=== PATIENT | female | born 1955 | race African-American/Black ===

== ENCOUNTER 2016-11-28 03:14 | Emergency (ER) | payer OTHER ==
[~2016-11-28] VITALS: Ht 157.5 cm; Wt 116.4 kg
[~2016-11-28 03:14] MED LIST: ASPIR 8181 M1 PO; ATARAX,VISTARIL25 MG PO; ATORVASTATIN CA80 MG PO; BENADRYL25 MG PO; CLOBETASOL PROP60 G1 TP; COUMADIN,JANTO2.5 MG PO; Cipro PO; DILAUDID2 MG PO; HYDROCHLOROTHIA25 MG PO; HYDROXYCHLOROQ200 MG PO; HYDROXYZINE HCL25 MG PO; Hydrodiuril,Oretic,E PO; KEFLEX500 MG PO; KLOR-CON M2020 MEQ PO; LO-DOSE ASPIRIN81 M2 PO; LOPRESSOR50 MG PO; MACROBID100 MG PO; METOPROLOL SUC100 MG PO; MYCOPHENOLATE500 MG PO; MYRBETRIQ25 MG PO; NIFEDIPINE ER30 MG PO; NIFEDIPINE ER60 MG PO; OXYBUTYNIN CHLO10 MG PO; PLAVIX75 MG PO; PREDNISONE20 MG PO; PRINIVIL40 MG PO; PYRIDIUM100 MG PO; PYRIDIUM200 MG PO; Procardia XL,Adalat PO; RANITIDINE HCL150 MG PO; SIMVASTATIN10 M1 PO; TEMOVATE 0.05%15 G1 TP; TEMOVATE 0.05%30 GM TP; Toprol XL PO; ZESTRIL,PRINIVI40 M1 PO; ZITHROMAX250 MG PO
[2016-11-28 04:41] LABS: EOSINOPHIL COUNT 0.1 K/uL (0-0.3); HEMATOCRIT 41.5 % (36.0-46.0); IMMATURE GRANULOCYTE (%) 0.2 % (0.0-0.7); IMMATURE GRANULOCYTE COUNT 0.2 K/uL; LYMPHOCYTE COUNT 0.8 K/uL (1.0-2.8); MCH 28.7 PG (29.0-34.0); MCHC 33.3 G/DL (30.0-36.0); MCV 86.3 FL (83-99); MEAN PLAT.VOLUME 12.3 uM^3 (9.5-12.4); MONOCYTE (%) 4.9 % (3-12); MONOCYTE COUNT 0.5 K/uL (0-0.8); NEUTROPHIL (%) 85.5 % (45-76); PLATELET COUNT 178 K/uL (156-360); RBC DIS.WIDTH-CV 13.8 % (11.8-14.6); RBC DIS.WIDTH-SD 42.8 % (39-53); RED BLOOD COUNT 4.81 M/uL (3.80-5.20); WHITE BLOOD COUNT 9.3 K/uL (4.1-10.2)
[2016-11-28 04:51] LABS: INTER. NORMALIZED RATIO 1.1; PTT 28.4 (25-32)
[2016-11-28 04:52] LABS: CHLORIDE 102 mEq/L (99-109); POTASSIUM 3.2 mEq/L (3.7-5.4); SODIUM 140 mEq/L (136-147)
[2016-11-28 04:53] LABS: MAGNESIUM 1.7 mg/dL (1.3-2.7)
[2016-11-28 04:55] LABS: GLUCOSE 145 mg/dL (70-99)
[2016-11-28 04:56] LABS: ANION GAP 10 MEQ/L (2-14); TOTAL BILIRUBIN 0.7 mg/dL (0.0-1.0)
[2016-11-28 04:58] LABS: ALKALINE PHOSPHATASE 59 IU/L (3-129); GFR ESTIMATE (CALCULATED) > 59 mL/min/
[2016-11-28 04:59] LABS: UREA NITROGEN (BUN) 16 mg/dL (9-23)
[2016-11-28 05:00] LABS: DIRECT BILIRUBIN 0.3 mg/dL (0.0-0.3)
[2016-11-28 05:01] LABS: TROP-I INTERPRETATION NEGATIVE; TROPONIN-I 0.01 ng/mL (0.0-0.30)
[2016-11-28 05:02] LABS: LIPASE 60 U/L (1.0-51.0)
[2016-11-28] MEDS ORDERED: ZOFRAN4 MG PO (05:23)
[2016-11-28 05:35] VITALS: BP 114/96
== END 2016-11-28 05:50 | disposition home or self-care (01) ==
LOC: EME 03:14
PROVIDERS: Emergency Medicine
DX: K52.9 Noninfective gastroenteritis and colitis, unspecified (principal); E87.6 Hypokalemia; R07.9 Chest pain, unspecified; I10 Essential (primary) hypertension; E78.5 Hyperlipidemia, unspecified; I25.10 Atherosclerotic heart disease of native coronary artery without angina pectoris; Z95.5 Presence of coronary angioplasty implant and graft; Z79.02 Long term (current) use of antithrombotics/antiplatelets; Z79.82 Long term (current) use of aspirin; Z87.891 Personal history of nicotine dependence
CPT/HCPCS: 71010; 74176; 80048; 80076; 83690; 83735; 84484; 85025; 85610; 85730; 93005; 99281; 99285; J1630; J2270; J2405

== ENCOUNTER 2017-01-15 17:22 | Emergency (ER) | payer OTHER ==
[~2017-01-15] VITALS: Ht 157.5 cm; Wt 104.0 kg
[~2017-01-15 17:22] MED LIST changes: +ZOFRAN4 MG PO
[2017-01-15] MEDS ORDERED: NAPROSYN500 MG PO (19:31)
[2017-01-15 19:40] VITALS: BP 131/87
== END 2017-01-15 19:40 | disposition home or self-care (01) ==
LOC: EME 17:22
DX: S93.602A Unspecified sprain of left foot, initial encounter (principal); W18.30XA Fall on same level, unspecified, initial encounter; I10 Essential (primary) hypertension; Z79.82 Long term (current) use of aspirin; Z79.02 Long term (current) use of antithrombotics/antiplatelets
CPT/HCPCS: 73630; 99281; 99283